=== PATIENT | male | born 1975 | race Caucasian/White ===

== ENCOUNTER 2022-09-27 05:15 | Day surgery (SDC) | payer BC ==
[~2022-09-27] VITALS: Ht 170.2 cm; Wt 82.6 kg
[2022-09-27] MEDS ORDERED: CEFAZOLIN SOD 2 GM in D5W 50 ML IV ONE (07:00)
[2022-09-27] MEDS ORDERED: NS IRRIG SOLN 1000 ML IR ONE (07:51)
[2022-09-27] MEDS ORDERED: DESFLURANE 15 MIN GAS INH ONE (07:51)
[2022-09-27] MEDS ORDERED: HYDROmorphone 2 MG/ML VIAL ONE (07:51)
[2022-09-27] MEDS ORDERED: BACITRACIN ZINC 15 GM TOPICAL OINTMENT TP ONE (07:51)
[2022-09-27] MEDS ORDERED: SUCCINYLCHOLINE CHLORIDE 20 MG/ML(QUELICIN) ONE (07:51)
[2022-09-27] MEDS ORDERED: fentaNYL CITRATE/PF 100 MCG/2 ML AMP ONE (07:51)
[2022-09-27] MEDS ORDERED: PROPOFOL 200MG/ 20ML VIAL (DIPRIVAN) IV ONE (07:51)
[2022-09-27] MEDS ORDERED: ONDANSETRON HCL 4 MG/2 ML VIAL ONE (07:51)
[2022-09-27] MEDS ORDERED: METOCLOPRAMIDE HCL 10 MG/2 ML VIAL ONE (07:51)
[2022-09-27] MEDS ORDERED: LR 1,000 ML IV.SOLN IV ONE (07:51)
[2022-09-27] MEDS ORDERED: LIDOCAINE/EPI MPF 1%1:200000 30 ML VIAL ONE (07:51)
[2022-09-27] MEDS ORDERED: ONDANSETRON HCL 4 MG/2 ML VIAL IVP PRN ×2 (08:30→13:00)
[2022-09-27] MEDS ORDERED: HYDROmorphone 1 MG/ML INJ. CARTRIDGE IVP PRN ×2 (08:30)
[2022-09-27] MEDS ORDERED: HYDROmorphone 2 MG/ML VIAL IVP PRN (08:30)
[2022-09-27] MEDS ORDERED: ACETAMINOPHEN I.V. 1000 MG 100 ML IV ONE (12:17)
[2022-09-27] MEDS: KCL 20 mEq in D5/0.45NS 1000mL 1,000 ML IV SCH ×2 (13:00→16:42)
[2022-09-27 14:25] VITALS: BP_SYST 140
[2022-09-27] MEDS: ONDANSETRON 4 MG ODT TAB PO PRN ×3 (14:54→20:47)
--- NOTE | 2022-09-27 15:13 | NUR ---
pt admitted from OR @ 1445. a&ox4, vss. incision closed with ney drain on right side. clear liquids and po zofran given as ordered. patient requesting tylenol for pain - waiting for order. scds on. family a bedside. educated on fall precautions. pt voided 275ml of clear yellow urine. call chen in reach. will continue to monitor. d/c home tomorrow.
[2022-09-27 16:00] VITALS: BP_SYST 144
--- NOTE | 2022-09-27 16:24 | NUR ---
GEN SURGEON AND PMD DR LEE WAS CALLED RE: ORDER FOR PAIN MED, PT'S PREFERS TYLENOL. SPOKE TO VISHAL.
[2022-09-27] MEDS: HYDROcodone/ACETAMIN 5-325 MG TAB (NORCO/ VICODIN) PO PRN ×2 (16:41→20:46)
[2022-09-27] MEDS ORDERED: ACETAMINOPHEN 325 MG TABLET PO PRN ×2 (19:00)
--- NOTE | 2022-09-27 19:01 | NUR ---
pt tolerated clear liquid diet, full liquid in am. 15ml bloody drainage out of ney drain. voiding. ivf infusing as ordered. norco helped pain but acetaminophen ordered per pt request. on RA, vss.
[2022-09-27] MEDS: CALCIUM 500 MG/TAB PO SCH (20:47)
[2022-09-27 22:18] LABS: ALBUMIN 3.6 g/dL (3.4-4.8); CALCIUM 7.7 mg/dL (8.4-11.0)
[2022-09-28] VITALS: BP_SYST 143
[2022-09-28] MEDS: KCL 20 mEq in D5/0.45NS 1000mL 1,000 ML IV SCH ×2 (05:56→13:32)
[2022-09-28] MEDS: HYDROcodone/ACETAMIN 5-325 MG TAB (NORCO/ VICODIN) PO PRN ×2 (05:56→12:56)
[2022-09-28 06:16] VITALS: BP_SYST 138
[2022-09-28] MEDS ORDERED: LEVOTHYROXINE SODIUM 0.137 MG TABLET PO SCH (07:00)
[2022-09-28 08:06] VITALS: BP_SYST 124
[2022-09-28] MEDS: CALCIUM 500 MG/TAB PO SCH (08:38)
[2022-09-28 08:43] LABS: ALBUMIN 3.7 g/dL (3.4-4.8); CALCIUM 7.5 mg/dL (8.4-11.0)
--- NOTE | 2022-09-28 10:41 | NUR ---
LEFT MESSAGE WITH SSW RE PT WANT TO SPEAK WITH THEM.
[2022-09-28 14:09] VITALS: BP_SYST 117
[2022-09-28 14:50] VITALS: BP_SYST 117
--- NOTE | 2022-09-28 15:08 | NUR ---
D/C Patient Patient given medication reconciliation form and D/C instructions. Exit Care provided. Patient verbalized understanding. MD discussed with patient the results and treatment provided. Ambulatory with steady gait for discharge to home. Patient in stable condition, ID band removed. IV catheter removed, intact and dressing applied, no active bleeding. Rx of given. Patient educated on pain management and BILL drainage monitoring and care. All belongings sent with patient.
== END 2022-09-28 15:00 | disposition home or self-care (01) ==
LOC: SDS 05:15 → SMU 05:15 → SDS 09-28 15:00
PROVIDERS: ATTEND Otolaryngology
DX: E04.2 Nontoxic multinodular goiter (principal); E06.5 Other chronic thyroiditis; C73 Malignant neoplasm of thyroid gland; Z20.822 Contact with and (suspected) exposure to COVID-19
CPT/HCPCS: 87081; 36415 ×2; 60240; 82310; 83970; 88307; 82040; U0003; Q0162 ×2; J0690; J2765; J2405; J2704; J0330; J3010; J1170; J7060; J7120; J0131